=== PATIENT | female | born 1990 | race Caucasian/White ===

== ENCOUNTER 2016-12-18 20:24 | Emergency (ER) | payer SELFPAY ==
[2016-12-18 20:43] VITALS: BP 125/68; PULSE 74; TEMP 98.2; BMI 23.8
--- NOTE | 2016-12-18 21:54 | PDOC ---
History of Present Illness - General Chief Complaint: Pain Stated Complaint: ABD PAIN Time Seen by Provider: 12/18/16 21:08 History Source: Patient, Friend Exam Limitations: Language Barrier (Patient speaks kinyarwanda, friend translates) - History of Present Illness Initial Comments: 12/18/16 21:48 The patient is a 26F with no PMH who presents to the ED with abdominal pain. A friend is in the room translating for the patient. The pain started 1 month ago and has worsened over the past week. She states it is a 9/10 at night and a 6/ 10 during the day. She was unable to describe the quality of the pain but stated that she felt distended and it was located in her epigastric region. This has never happened before. She has taken tylenol for the pain but it does not eliminate the pain. She states that she feels full with food of any kind and she feels full when she lays down. The pain is worse with deep breaths. There has been no recent travel, no sick contacts, and no history of colonoscopy and endoscopy. She was seen at [facility] last month and had a CT scan. The scan showed a L ovarian cyst and was benign otherwise per attending I called. Last BM was 2pm today. PSH: 9 years ago Social: Does not smoke, drink, or use illicit drugs Allergies: NKDA Past History - Past Medical History Allergies/Adverse Reactions: Allergies Allergy/AdvReac Type Severity Reaction Status Date / Time No Known Allergies Allergy Verified 12/18/16 20:39 Home Medications: Ambulatory Orders Ibuprofen 600 mg PO QID #30 tablet 12/01/15 Lidocaine 2% Viscous Oral [Xylocaine 2% Viscous Oral -] 20 ml PO TID PRN #1 ud 12/01/15 Other medical history: Pt denies - Surgical History Abdominal Surgery: Yes - Immunization History Immunization Up to Date: Yes - Psycho/Social/Smoking Cessation Hx Anxiety: No Suicidal Ideation: No Smoking History: Never smoked Information on smoking cessation initiated: No Hx Alcohol Use: No Drug/Substance Use Hx: No Substance Use Type: None Review of Systems - Review of Systems Constitutional: No: Chills, Fever Cardiac (ROS): No: Chest Pain ABD/GI: Yes: Abdominal Distended, Nausea, Poor Appetite. No: Blood Streaked Bowels, Constipated, Diarrhea, Vomiting : Yes: Burning, Dysuria *Physical Exam - Vital Signs Last Vital Signs Temp Pulse Resp BP Pulse Ox 98.2 F 74 20 125/68 99 12/18/16 20:39 12/18/16 20:39 12/18/16 20:39 12/18/16 20:39 12/18/16 20:39 - Physical Exam General Appearance: Yes: Nourished, Appropriately Dressed. No: Apparent Distress HEENT: positive: Normal Voice Respiratory/Chest: positive: Lungs Clear, Normal Breath Sounds. negative: Chest Tender, Respiratory Distress, Accessory Muscle Use Cardiovascular: positive: Regular Rhythm, Regular Rate, S1, S2 Gastrointestinal/Abdominal: positive: Tender (over epigastric region and suprapubic region), Flat, Soft Musculoskeletal: positive: CVA Tenderness (R), CVA Tenderness (L) Extremity: negative: Swelling Integumentary: positive: Dry, Warm Neurologic: positive: Fully Oriented, Alert, Normal Mood/Affect ED Treatment Course - LABORATORY CBC & Chemistry Diagram: 12/18/16 22:20 12/18/16 22:20 - RADIOLOGY Radiology Studies Ordered: Category Date Time Status ABDOMEN US [US] Stat Ultrasound 12/18/16 21:37 Ordered PELVIC / BLADDER US [US] Stat Ultrasound 12/18/16 21:38 Ordered Medical Decision Making - Medical Decision Making 12/18/16 22:15 Patient is a 26F with no PMH who is presenting with epigastric and suprapubic abdominal pain. On the Ddx is UTI, pancreatitis, and uterine pathologies. I have ordered labs and an US of her abdomen and pelvis to take a look at her uterus. I spoke with the [place] attending and he told me that she had a CT there 1 month ago and the only significant finding was a L ovarian cyst. I will update the patient as her results are brought in. 12/19/16 01:44 Abdomen and pelvis US show now acute pathology. Patient is updated and agrees on discharge. Patient is informed to return if symptoms persist. Patient is also informed to follow up with PCP. 12/19/16 01:51 Patient desires f/u with a PCP. I will make the referral to [address] [place] [address]. [phone] [facility]. *DC/Admit/Observation/Transfer Diagnosis at time of Disposition: Abdominal pain Qualifiers: Abdominal location: upper abdomen, unspecified Qualified Code(s): R10.10 - Upper abdominal pain, unspecified - Discharge Dispostion Disposition: HOME Condition at time of disposition: Stable Admit: No - Patient Instructions Additional Instructions: Please return if symptoms persist, worsen, or new symptoms arise. Please call [phone] (Medical clinic) to find a new primary care doctor so that he can follow up for your abdominal pain. - Attestations Physician Attestion: 12/19/16 01:54 I, Dr. Yahir Chan, attest that this document has been prepared under my direction and personally reviewed by me in its entirety. I further attest, that it accurately reflects all work, treatment, procedures and medical decision -making performed by me.
[2016-12-18 22:28] LABS: BASOPHIL 0.8 % (0-2.0); EOSINOPHIL 1.7 % (0-4.5); MCH 31.4 pg (25.7-33.7); MCHC 34.1 g/dl (32.0-36.0); MEAN CELL VOLUME 92.2 fl (80-96); MEAN PLT VOLUME 8.4 fl (7.5-11.1); NEUTROPHILS 48.8 % (42.8-82.8); PLATELET COUNT 220 K/MM3 (134-434); RDW 12.6 % (11.6-15.6); WHITE BLOOD COUNT 6.4 K/mm3 (4.0-10.0)
[2016-12-18 22:47] LABS: URINE APPEARANCE CLEAR; URINE BILIRUBIN NEGATIVE (NEGATIVE); URINE COLOR LTYELLOW; URINE GLUCOSE (UA) NEGATIVE (NEGATIVE); URINE KETONE NEGATIVE (NEGATIVE); URINE LEUK ESTERASE NEGATIVE (NEGATIVE); URINE NITRITE NEGATIVE (NEGATIVE); URINE PROTEIN NEGATIVE (NEGATIVE); URINE UROBILINOGEN NEGATIVE mg/dL (0.2-1.0)
[2016-12-18 22:52] LABS: URINE BLOOD 1+ (NEGATIVE)
[2016-12-18 22:53] LABS: URINE RBC 10 /hpf (0-3); URINE WBC 1 /hpf (3-5)
[2016-12-18 22:59] LABS: ALBUMIN 4.1 g/dl (3.4-5.0); ANION GAP 8 (8-16); BILIRUBIN,TOTAL 0.7 mg/dL (0.2-1.0); CALCIUM 8.6 mg/dL (8.5-10.1); CO2 26 mmol/L (21-32); GLUCOSE,RANDOM 99 mg/dL (74-106); SGOT/AST 19 U/L (15-37); SGPT/ALT 36 U/L (12-78); TOT PROT 7.6 g/dl (6.4-8.2)
[2016-12-18 23:00] LABS: ALK PHOS 113 U/L (45-117)
[2016-12-18] MEDS ORDERED: PANTOPRAZOLE SODIUM 40 MG in SODIUM CHLORIDE 100 ML IVPB ONE (23:00)
[2016-12-18] MEDS ORDERED: MAG HYDROX/AL HYDROX/SIMETH 30 ML UNIT-DOSE CUP PO ONE (23:00)
[2016-12-18] MEDS ORDERED: PANTOPRAZOLE SODIUM 100 ML IVPB ONE (23:15)
[2016-12-18] MEDS ORDERED: MAG HYDROX/AL HYDROX/SIMETH 30 ML UNIT-DOSE CUP ONE (23:15)
--- NOTE | 2016-12-19 01:12 | PDOC ---
Attending Attestation - Resident Resident Name: Yahir Chan - HPI HPI: 12/19/16 01:10 26-year-old female presents with epigastric pain and complaining of some suprapubic discomfort and dysuria. She was actually seen at [facility] recently and had a CAT scan done the end of November. The abdomen and pelvic CAT scan only showed a left ovarian cyst . Dr. Medellin called [facility] and got the CAT scan report Negative test Urinalysis is negative CBC is within normal limits Chemistries are within normal limits including liver function tests and lipase - Physicial Exam PE: 12/19/16 01:45 wnwd 26 yo female in no acute distress HEENT wnl Neck supple lungs cta b/l abd soft,nontender ext no edema,no deformity neuro no focal neuro deficits - Medical Decision Making 12/19/16 01:49 IMP GERD,pt d/c to followup with her PCP
== END 2016-12-19 02:03 | disposition home or self-care (01) ==
LOC: JER 20:24
PROC: 3E033GC Introduction of Other Therapeutic Substance into Peripheral Vein, Percutaneous Approach (ICD-10-PCS; principal; 2016-12-18)
DX: R10.10 Upper abdominal pain, unspecified (principal)
CPT/HCPCS: 36415; 76700-TC; 76856-TC; 80053; 81003; 81015; 83690; 84703; 85025; 99282-25